=== PATIENT | male | born 1990 | race Caucasian/White ===

== ENCOUNTER 2018-05-01 20:35 | Emergency (ER) | payer OTHER ==
[~2018-05-01] VITALS: Ht 177.8 cm; Wt 77.1 kg
[~2018-05-01 20:35] MED LIST: KLONOPIN0.5 MG PO; PROVENTIL HFA6.7 GM INH; ZOLOFT50 MG PO
== END 2018-05-01 21:29 | disposition home or self-care (01) ==
LOC: ED 20:35
DX: H16.133 Photokeratitis, bilateral (principal); Z79.899 Other long term (current) drug therapy; W89.8XXA Exposure to other man-made visible and ultraviolet light, initial encounter; Y92.89 Other specified places as the place of occurrence of the external cause; Y99.0 Civilian activity done for income or pay
CPT/HCPCS: 99283

== ENCOUNTER 2022-11-08 13:16 | Emergency (ER) | payer OTHER ==
[~2022-11-08] VITALS: Ht 177.8 cm; Wt 84.6 kg
== END 2022-11-08 14:30 | disposition home or self-care (01) ==
LOC: ED 13:16
DX: R39.82 Chronic bladder pain (principal); J45.909 Unspecified asthma, uncomplicated
CPT/HCPCS: 51798; 99284-25